=== PATIENT | male | born 1985 | race Two or more races ===

== ENCOUNTER 2019-02-14 06:07 | Emergency (ER) | payer OTHER ==
[~2019-02-14] VITALS: Ht 175.3 cm; Wt 62.6 kg
--- NOTE | 2019-02-14 06:55 | NUR ---
PT BIBS. C/O "HAVING VERY BAD HIP AND BACK PAIN. KEEPING ME UP AT NIGHT. CANT SIT" -SOB AOX4. -N/ VSS. AMBULATORY
[2019-02-14] MEDS ORDERED: KETOROLAC TROMETHAMINE INJ 60 MG/2 ML VIAL IM ONE ×2 (07:00→07:08)
--- NOTE | 2019-02-14 07:41 | NUR ---
Kal ly in ED - 02/14/19 at 0741 by YOEL Patient discharged to home in stable condition. Written and verbal after care instructions given. Patient verbalizes understanding of instruction.
[2019-02-14 07:42] VITALS: BP 135/77
--- NOTE | 2019-02-14 07:42 | NUR ---
Patient discharged to home in stable condition. Written and verbal after care instructions given. Patient verbalizes understanding of instruction.
== END 2019-02-14 07:43 | disposition home or self-care (01) ==
LOC: ER 06:10
DX: M54.42 Lumbago with sciatica, left side (principal); Z88.0 Allergy status to penicillin
CPT/HCPCS: 72131; 96372; 99284; J1885

== ENCOUNTER 2021-08-28 07:32 | Emergency (ER) | payer OTHER ==
[~2021-08-28] VITALS: Ht 175.3 cm; Wt 63.5 kg
--- NOTE | 2021-08-28 07:32 | NUR ---
TO ER BED 10, C/O WORSENING NECK PAIN X 3 DAYS,STARTED AFTER EXERCISING, AAOX3, BREATHING EVEN AND NON LABORED, AWAITING MD ORTEGA
[2021-08-28 07:38] VITALS: BP 112/69
--- NOTE | 2021-08-28 07:40 | NUR ---
DR VARGAS AT BEDSIDE FOR EVAL
[2021-08-28] MEDS ORDERED: PRED50TA PO (07:44)
[2021-08-28] MEDS ORDERED: DIAZ2TAB PO (07:44)
[2021-08-28] MEDS ORDERED: predniSONE 20 MG TABLET ONE (07:52)
[2021-08-28] MEDS ORDERED: DIAZEPAM 5 MG TABLET ONE (07:52)
[2021-08-28] MEDS ORDERED: predniSONE 5 MG TABLET PO ONE (08:00)
[2021-08-28] MEDS ORDERED: DIAZEPAM 5 MG TABLET PO ONE ×2 (08:00→08:30)
[2021-08-28] MEDS ORDERED: predniSONE 50 MG TABLET PO ONE (08:00)
--- NOTE | 2021-08-28 08:04 | NUR ---
Patient discharged to home in stable condition. Written and verbal after care instructions given. Patient verbalizes understanding of instruction.
--- NOTE | 2021-08-28 08:05 | NUR ---
VALIUM DOSE CHANGED TO [address] VARGAS
== END 2021-08-28 08:21 | disposition home or self-care (01) ==
LOC: ER 07:36
DX: M43.6 Torticollis (principal); Z88.0 Allergy status to penicillin; Z60.2 Problems related to living alone; Z79.899 Other long term (current) drug therapy
CPT/HCPCS: 99283; J7512 ×2

== ENCOUNTER 2022-06-15 08:47 | Outpatient (CLI) | payer OTHER ==
[~2022-06-15 08:47] MED LIST: DIAZ2TAB PO; PRED50TA PO
== END 2022-06-15 23:59 | disposition home or self-care (01) ==
LOC: WOU 08:47
PROVIDERS: ATTEND Podiatrist Foot & Ankle Surgery
DX: L56.5 Disseminated superficial actinic porokeratosis (DSAP) (principal); M79.672 Pain in left foot
CPT/HCPCS: 73630-TC; G0463

== ENCOUNTER 2025-05-26 22:52 | Emergency (ER) | payer OTHER | END 2025-05-27 00:46 | disposition left against medical advice (07) | LOC: ER 22:55 | DX: R39.89 Other symptoms and signs involving the genitourinary system (principal); Z53.21 Procedure and treatment not carried out due to patient leaving prior to being seen by health care provider ==